=== PATIENT | male | born 1955 | race Caucasian/White ===

== ENCOUNTER 2016-08-04 05:17 | Emergency (ER) | payer SELFPAY ==
[2016-08-04] MEDS ORDERED: LIDOCAINE VIS-MYLANTA 30 ML UD PO ONE (05:22)
[2016-08-04 05:43] VITALS: O2SAT 96
[2016-08-04] MEDS ORDERED: SUCRALFATE 1 GM/10 ML 1 GM UD PO ONE (05:55)
[2016-08-04] MEDS ORDERED: PANTOPRAZOLE SODIUM TAB 40 MG PO ONE (05:55)
--- NOTE | 2016-08-04 06:00 | ED.PDOC ---
History of Present Illness - General Source: patient Exam Limitations: no limitations - History of Present Illness Initial Comments: the patient is a 61-year-old male presenting to the emergency room secondary to the acute onset of chest pain going to both arms and up to his neck. He does have epigastric pain as well. He did become diaphoretic while driving here. No syncope. No palpitations. He has had a recent progression of his reflux symptoms. No fevers. He did take a Tylenol and an aspirin earlier in the night after he had a short similar episode. He does have a cardiac history and has had a couple of stents the last placed several years ago. He does rate the pain is very severe. He was given a GI cocktail which relieved 80-90% of the pain. The patient does appear anxious. He does have a difficult time remaining still. Timing/Duration: 1/2 hour Severity: severe Improving Factors: other - leaning forward and moving a little bit seems to help some Worsening Factors: nothing Associated Symptoms: chest pain, diaphoresis, loss of appetite, nausea/vomiting <Jules Jones - Last Filed: 08/04/16 07:03> <Emi Beard - Last Filed: 08/04/16 09:23> - General Chief Complaint: Chest Pain/GA Stated Complaint: burning to chest and arms Time Seen by Provider: 08/04/16 05:21 - History of Present Illness Allergies/Adverse Reactions: Allergies NO KNOWN ALLERGY Allergy (Verified 08/04/16 05:43) Home Medications: Ambulatory Orders NK [NK] 08/04/16 Review of Systems - Review of Systems Constitutional: States: diaphoresis EENTM: States: no symptoms reported Respiratory: States: no symptoms reported Cardiology: States: chest pain Gastrointestinal/Abdominal: States: abdominal pain, nausea - mild Genitourinary: States: no symptoms reported Musculoskeletal: States: other - chest pain extends down the inside of bilateral arms. Skin: States: no symptoms reported Neurological: States: no symptoms reported Endocrine: States: no symptoms reported All other Systems: No Change from Baseline <Jules Jones - Last Filed: 08/04/16 07:03> Past Medical History (General) - Patient Medical History Hx Cardiac Disorders: Yes Hx Diabetes: Yes - diet controlled - Vaccination History Hx Influenza Vaccination: No <Jules Jones - Last Filed: 08/04/16 07:03> Family Medical History - Family History Father Family History: Unknown <Jules Jones - Last Filed: 08/04/16 07:03> Physical Exam - Physical Exam General Appearance: Alert, Anxious Eye Exam: bilateral normal Ears, Nose, Throat: hearing grossly normal, normal ENT inspection, normal pharynx - the patient is chewing his gum and a feverish rate Neck: non-tender, full range of motion, supple Respiratory: chest non-tender, lungs clear, normal breath sounds, no respiratory distress, no accessory muscle use Cardiovascular/Chest: normal peripheral pulses, regular rate, rhythm, no edema Peripheral Pulses: radial,right: 2+, radial,left: 2+, dorsalis pedis,right: 2+, dorsalis pedis,left: 2+ Gastrointestinal/Abdominal: soft, other - he does have some epigastric discomfort palpation. No definite rebound or peritoneal signs at this time Rectal Exam: deferred Back Exam: normal inspection, no CVA tenderness, no vertebral tenderness Extremity: normal range of motion, non-tender, normal inspection, no pedal edema , no calf tenderness, normal capillary refill Neurologic: alert, normal mood/affect, oriented x 3 Skin Exam: normal color Comments: Vital Signs - 24 hr 08/04/16 08/04/16 08/04/16 05:37 05:45 05:57 Temperature 96.3 F L Pulse Rate [ 92 H 92 H 86 Apical] Respiratory 20 18 Rate Blood Pressure 166/107 140/83 [Left Arm] O2 Sat by Pulse 96 96 Oximetry <Jules Jones Stephanie - Last Filed: 08/04/16 07:03> Progress - Progress Progress: 08/04/16 06:02 the patient is a 61-year-old male with a cardiac history presenting with atypical chest pain. He does have a significant history of reflux symptoms , and given his response to the GI cocktail, this may be reflux esophagitis. Lab work and x-rays are pending at this time. I do not have a previous EKG to compare to. Repeat EKGs will be followed. He will need serial cardiac enzymes. He had already taken a aspirin along with the Tylenol before arrival. Currently I'll hold off on Lovenox. Chest pain has been significantly reduced at this time, after the GI cocktail. the patient will be checked out to the oncoming [facility] emergency room doctor for further monitoring and evaluation as deemed appropriate by continued clinical presentation and results of studies. 08/04/16 06:06 initial troponin is borderline at 0.06. Repeat EKG after 30 minutes shows really no significant change. We do appear to have a better tracing for V2 however. No acute ST segment changes concerning for ischemia with the exception of the T-wave inversion in lead aVL which is persistent. Otherwise there is normal sinus rhythm. There is slow R-wave progression in anterior leads which is persistent. The patient is having very little chest discomfort at this time. Some lab work is still pending. X-rays are still pending. <Jules Jnoes L - Last Filed: 08/04/16 07:03> - Progress Progress: 08/04/16 09:18 Second set of cardiac enzymes are abnormal with Troponin of 0.61. Patient is refusing to be admitted to the hospital. Is refusing Ambulance transfer. Insisting he is going to drive himself to his [employer] [facility], Dr. Abdulkadir Figueredo, in [place], [place]. Spoke with Dr. Figueredo. Advised a dose of Plavix and Lovenox before patient sigins out AMA. Patient agreed to medication and reports he will drive himself directly to Dr. Figueredo's office in [place]. He understands the risks of leaving with out completing care. - Results/Orders Results/Orders: Laboratory Tests 08/04/16 08/04/16 08/04/16 05:30 06:15 06:19 WBC 12.0 H RBC 6.00 Hgb 17.3 Hct 51.7 MCV 86.2 MCH 28.8 MCHC 33.4 RDW 13.0 Plt Count 196 MPV 9.4 Absolute Neuts (auto) 7.90 H Absolute Lymphs (auto) 2.70 Absolute Monos (auto) 0.80 Absolute Eos (auto) 0.50 H Absolute Basos (auto) 0.10 Neutrophils % 66.1 Lymphocytes % 22.3 Monocytes % 6.3 Eosinophils % 4.3 Basophils % 1.0 PT 10.5 INR 0.930 PTT (SP) 32.6 D-Dimer, Quantitative < 230 Sodium 141 Potassium 4.1 Chloride 104 Carbon Dioxide 29 Anion Gap 12.1 BUN 12 Creatinine 1.07 BUN/Creatinine Ratio 11.2 Random Glucose 163 H Serum Osmolality 284.6 Calcium 9.8 Total Bilirubin 0.7 AST 22 ALT 20 Alkaline Phosphatase 90 Creatine Kinase 122 CK-MB (CK-2) 4.2 CK-MB (CK-2) % Not Reportable Troponin I 0.06 H B-Natriuretic Peptide 16.9 Serum Total Protein 7.8 Albumin 4.4 Globulin 3.4 Albumin/Globulin Ratio 1.3 Amylase 127 H Lipase 49 Urine Color Yellow Urine Appearance Clear Urine pH 7.0 Ur Specific [place] 1.025 Urine Protein Negative Urine Glucose (UA) Negative Urine Ketones Trace Urine Blood Negative Urine Nitrite Negative Urine Bilirubin Negative Urine Urobilinogen 0.2 Ur Leukocyte Esterase Negative Urine RBC 0 Urine WBC 0 Ur Epithelial Cells 0 Urine Bacteria 0 Urine Opiates Screen Negative Urine Barbiturates Negative Ur Phencyclidine Scrn Negative U Amphetamin/Meth Scrn Negative U Benzodiazepines Scrn Negative U Cocaine Metab Screen Negative U Cannabinoids Screen Positive H 08/04/16 08:30 WBC RBC Hgb Hct MCV MCH MCHC RDW Plt Count MPV Absolute Neuts (auto) Absolute Lymphs (auto) Absolute Monos (auto) Absolute Eos (auto) Absolute Basos (auto) Neutrophils % Lymphocytes % Monocytes % Eosinophils % Basophils % PT INR PTT (SP) D-Dimer, Quantitative Sodium Potassium Chloride Carbon Dioxide Anion Gap BUN Creatinine BUN/Creatinine Ratio Random Glucose Serum Osmolality Calcium Total Bilirubin AST ALT Alkaline Phosphatase Creatine Kinase 158 CK-MB (CK-2) 10.7 H* D CK-MB (CK-2) % 6.77 H Troponin I 0.61 H* B-Natriuretic Peptide Serum Total Protein Albumin Globulin Albumin/Globulin Ratio Amylase Lipase Urine Color Urine Appearance Urine pH Ur Specific [place] Urine Protein Urine Glucose (UA) Urine Ketones Urine Blood Urine Nitrite Urine Bilirubin Urine Urobilinogen Ur Leukocyte Esterase Urine RBC Urine WBC Ur Epithelial Cells Urine Bacteria Urine Opiates Screen Urine Barbiturates Ur Phencyclidine Scrn U Amphetamin/Meth Scrn U Benzodiazepines Scrn U Cocaine Metab Screen U Cannabinoids Screen - EKG/XRAY/CT EKG: Sinus - poor R wave prog. Q wave in AVL, nonspecific ST T wave Chg XRAY: abdomen - No acute process <Emi Beard - Last Filed: 08/04/16 09:23> Departure <Jules Jones - Last Filed: 08/04/16 07:03> - Departure Time of Disposition: 09:22 <Emi Beard - Last Filed: 08/04/16 09:23> - Departure Clinical Impression: Acute myocardial infarction Disposition: Left Against Medical Advice Condition: Poor Departure Forms: ED Discharge - Pt. Copy, Patient Portal Self Enrollment Home Medications: Ambulatory Orders NK [NK] 08/04/16
--- NOTE | 2016-08-04 07:14 | RAD ---
EXAM DESCRIPTION: Single AP supine view of the abdomen CLINICAL HISTORY: 61 years Male, chest and epigastric pain COMPARISON: None. FINDINGS: There is a moderate amount of stool and gas scattered throughout the colon. The bowel gas pattern is nonobstructive. The bones are unremarkable. Surgical clips in the right upper quadrant are likely related to prior cholecystectomy. A few small calcifications project over the left kidney. Several small pelvic calcifications probably represent phlebolith. IMPRESSION: Small to moderate amount of colonic stool and gas, but no bowel obstruction. Possible left-sided nephrolithiasis. Electronically signed by: Roberth Camacho MD 08/04/2016 7:13 AM CDT
--- NOTE | 2016-08-04 07:16 | RAD ---
EXAM DESCRIPTION: Chest,2 Views CLINICAL HISTORY: chest and epigastric pain COMPARISON: December 09, 2007 FINDINGS: PA and lateral views the chest were obtained. An upright view of the abdomen is also included on this exam. The cardiomediastinal silhouette is unremarkable. There is no airspace consolidation or pleural effusion. The bronchovascular markings are within normal limits, and the lungs are not hyperinflated. There is no pneumothorax or acute fracture. No free subdiaphragmatic gas is identified. IMPRESSION: Negative exam. Electronically signed by: Roberth Camacho MD 08/04/2016 7:15 AM CDT
--- NOTE | 2016-08-04 07:17 | RAD ---
EXAM DESCRIPTION: Abdomen Lat/Decubitus CLINICAL HISTORY: 61 years Male, acute abd pain, question of free air COMPARISON: None. FINDINGS: A single left side down decubitus view of the abdomen was obtained. There is no free air under the right-sided abdominal wall. Air-fluid levels in the colon suggests diarrhea. Surgical clips in the right upper quadrant are likely related to prior cholecystectomy. IMPRESSION: No evidence of pneumoperitoneum. Electronically signed by: Roberth Camacho MD 08/04/2016 7:16 AM CDT
[2016-08-04] MEDS ORDERED: CLOPIDOGREL 75 MG TAB PO ONE (09:16)
[2016-08-04] MEDS ORDERED: ASPIRIN (CHEWABLE) 81 MG TAB PO ONE (09:17)
[2016-08-04] MEDS ORDERED: ENOXAPARIN SODIUM 80 MG/0.8 ML SYG SUBCU ONE (09:32)
[2016-08-04 09:43] VITALS: BP 157/80; TEMP 97
== END 2016-08-04 09:44 | disposition left against medical advice (07) ==
LOC: ER 05:17
DX: I21.3 ST elevation (STEMI) myocardial infarction of unspecified site (principal); E11.9 Type 2 diabetes mellitus without complications